=== PATIENT | male | born 1995 | race Caucasian/White ===

== ENCOUNTER 2016-07-30 01:25 | Emergency (ER) | payer OTHER ==
[~2016-07-30] VITALS: Ht 180.3 cm; Wt 83.9 kg
[2016-07-30 02:28] LABS: ABSOLUTE BASOPHIL COUNT 0 /CUMM (0.0-0.2); ABSOLUTE EOSINOPHIL COUNT 0 /CUMM (0.0-0.7); ABSOLUTE GRANULOCYTE CT 4.7 /CUMM (1.4-6.5); ABSOLUTE LYMPH COUNT 0.2 /CUMM (1.2-3.4); ABSOLUTE MONOCYTE COUNT 0.5 /CUMM (0.10-0.60); BASOPHIL % 0.1 % (0.0-2.0); EOSINOPHIL % 0.1 % (0-5); GRANULOCYTE % 87.7 % (42.2-75.2); HEMATOCRIT 55.2 % (42-52); MEAN CORPUSCULAR HGB 30.2 PG (27.0-31.0); MEAN CORPUSCULAR HGB CONC 34.2 G/DL (33.0-37.0); MEAN CORPUSCULAR VOLUME 88.3 FL (80.0-94.0); MEAN PLATELET VOLUME 8.1 FL (7.4-10.4); PLATELET COUNT 228 /CUMM (130-400); RBC DISTRIBUTION WIDTH 12.4 % (11.5-14.5); RED BLOOD CELL CT 6.25 /CUMM (4.70-6.10); WHITE BLOOD CELL COUNT 5.4 /CUMM (4.8-10.8)
--- NOTE | 2016-07-30 03:19 | ED GI/GU/ABDOMINAL COMPLAINT ---
History of Present Illness General Chief Complaint: Nausea, Vomiting, Diarrhea Stated Complaint: NAUSEA,VOMITING,FACIAL AND ARM NUMBNESS Source: patient, family Exam Limitations: no limitations Vital Signs & Intake/Output Vital Signs & Intake/Output Vital Signs Date Time Temp Pulse Resp B/P Pulse O2 O2 Flow FiO2 Ox Delivery Rate 07/30 0650 98.6 103 18 105/55 96 Room Air 07/30 0603 99.6 90 07/30 0601 99.6 07/30 0538 99.4 98 18 114/69 98 Room Air 07/30 0535 99.4 07/30 0444 98.5 102 18 115/66 96 Room Air 07/30 0326 112 119/70 07/30 0221 99.9 126 20 100 Room Air Allergies Coded Allergies: amoxicillin (From Augmentin) (UNKNOWN 07/30/16) clavulanic acid (From Augmentin) (UNKNOWN 07/30/16) Reconcile Medications Ondansetron (Zofran Odt) 4 MG TAB.RAPDIS 1 TAB SL TID PRN NAUSEA Triage Nurses Notes Reviewed? yes Onset: Abrupt Duration: hour(s): Timing: recent history Quality/Severity: cramping Location: generalized abdomen Radiation: no radiation Activities at Onset: eating, "My family had the same symptoms a week ago." Prior Abdominal Problems: none Modifying Factors: Worsens With: vomiting. Associated Symptoms: abdominal pain, diarrhea, nausea/vomiting HPI: 21 yo gentleman in prior good health, presents with 12 hours of of nausea, vomiting, diarrhea which began soon after eating hamburgers. He notes also that his family had similar symptoms last week. "I felt numbness and tingling in both my hands and my face... but it's gotten better now." He denies fever, chills, dysuria. He is otherwise well. "But I can't keep anything down." (PATRICIA RODRIGUEZ,ARIANA Redding) Past History Travel History Traveled to [place] past 21 day No Medical History Any Pertinent Medical History? none Surgical History Surgical History: none Family History Hx Contributory? No (ARIANA GOMEZ MD) Review of Systems Review of Systems Constitutional: Reports: no symptoms. EENTM: Reports: no symptoms. Respiratory: Reports: no symptoms. Cardiovascular: Reports: no symptoms. GI: Reports: no symptoms. Genitourinary: Reports: no symptoms. Musculoskeletal: Reports: no symptoms. Skin: Reports: no symptoms. Neurological/Psychological: Reports: no symptoms. Hematologic/Endocrine: Reports: no symptoms. Immunologic/Allergic: Reports: no symptoms. All Other Systems: Reviewed and Negative (PATRICIA RODRIGUEZ,ARIANA Redding) Physical Exam Physical Exam General Appearance: well developed/nourished, mild distress Head: atraumatic, normal appearance Eyes: Bilateral: normal appearance. Ears, Nose, Throat, Mouth: hearing grossly normal, moist mucous membrane Neck: normal inspection, supple, full range of motion, normal alignment Respiratory: normal breath sounds, chest non-tender, no respiratory distress, quiet respiration, lungs clear Cardiovascular: regular rate/rhythm Gastrointestinal: normal bowel sounds, soft, non-tender, no organomegaly Back: normal inspection Extremities: normal range of motion Neurologic/Psych: no motor/sensory deficits, awake, alert, oriented x 3 Skin: intact, normal color, warm/dry Core Measures ACS in differential dx? No Severe Sepsis Present: No Septic Shock Present: No (PATRICIA RODRIGUEZ,ARIANA Redding) Progress Differential Diagnosis: viral gastro vs food poisoning vs other. Plan of Care: Orders Procedure Date/time Status LIPASE 07/30 129 Complete HEPATIC FUNCTION PANEL 07/30 129 Complete CBC WITHOUT DIFFERENTIAL 07/30 129 Complete BASIC METABOLIC PANEL 07/30 129 Complete AMYLASE 07/30 129 Complete Laboratory Tests 07/30/16 0218: Anion Gap 18 H, Estimated GFR > 60, BUN/Creatinine Ratio 23.6, Glucose 116 H, Calcium 9.8, Total Bilirubin 1.8 H, Direct Bilirubin 0.4, AST 20, ALT 36, Alkaline Phosphatase 73, Total Protein 7.5, Albumin 4.6, Amylase < 30 L, Lipase 49, CBC w Diff MAN DIFF ORDERED, RBC 6.25 H, MCV 88.3, MCH 30.2, RDW 12.4, MPV 8.1, Gran % 87.7 H, Lymphocytes % 3.0 L, Monocytes % 9.1, Eosinophils % 0.1, Basophils % 0.1, Absolute Granulocytes 4.7, Segmented Neutrophils 85 H, Band Neutrophils 5, Absolute Lymphocytes 0.2 L, Lymphocytes 4 L, Monocytes 6, Absolute Monocytes 0.5, Absolute Eosinophils 0, Absolute Basophils 0, Platelet Estimate ADEQUATE, Normocytic RBCs VERIFIED, Normochromic RBCs VERIFIED, PUBS MCHC 34.2 Initial ED EKG: none Hand-Off Endorsed To: YVETTE MI MD Endorsed Time: 0700 Pending: other (follow up after iv fluids) (PATRICIA RODRIGUEZ,ARIANA Redding) Comments: Feels better, no longer dizzy. + urination after 5 liters NS. (YVETTE MI MD) Departure Departure Disposition: HOME OR SELF CARE Condition: Stable Clinical Impression Primary Impression: Nausea and vomiting Secondary Impressions: Gastroenteritis Referrals: VITO RODRIGUEZ,FRED Zapata (PCP/Family) Referred to [facility] as new patient No Departure Forms: Customer Survey General Discharge Information Prescriptions: Current Visit Scripts Ondansetron (Zofran Odt) 1 TAB SL TID PRN NAUSEA #10 TAB Ref 1 Comments 07/30/15, 6:54am... After 3 liters normal saline, pt feels better while standing but his pulse increases to 130's. Pt to receive 2 more liters of normal saline. (PATRICIA RODRIGUEZ,ARIANA Redding) Departure Time of Disposition: 08 (YVETTE MI MD)
[2016-07-30] MEDS ORDERED: ZOFRAN ODT4 M1 SL (04:55)
[2016-07-30 08:41] VITALS: BP 110/71
== END 2016-07-30 08:42 ==
LOC: ERH 01:25
PROVIDERS: Pediatrics
DX: K52.9 Noninfective gastroenteritis and colitis, unspecified (principal); R20.0 Anesthesia of skin
CPT/HCPCS: 96361; 96365; 96375; J0131; J2405